=== PATIENT | female | born 2000 | race Caucasian/White ===

== ENCOUNTER 2021-05-18 09:24 | Emergency (ER) | payer OTHER ==
[~2021-05-18] VITALS: Ht 162.6 cm; Wt 52.2 kg
== END 2021-05-18 13:53 | disposition home or self-care (01) ==
LOC: ER 09:24
DX: T15.02XA Foreign body in cornea, left eye, initial encounter (principal); X58.XXXA Exposure to other specified factors, initial encounter; Y93.89 Activity, other specified; Y92.89 Other specified places as the place of occurrence of the external cause; Y99.8 Other external cause status

== ENCOUNTER 2021-11-06 07:49 | Outpatient (CLI) | payer OTHER | END 2021-11-06 07:52 | disposition home or self-care (01) | LOC: SONOGRAMA 07:49 | PROVIDERS: ATTEND Pathology Anatomic Pathology & Clinical Pathology | DX: D24.2 Benign neoplasm of left breast (principal) ==

== ENCOUNTER 2023-07-25 11:26 | Emergency (ER) | payer OTHER ==
[~2023-07-25] VITALS: Ht 157.5 cm; Wt 53.5 kg
== END 2023-07-25 13:09 | disposition home or self-care (01) ==
LOC: ER 11:26
DX: H10.89 Other conjunctivitis (principal)